=== PATIENT | female | born 1945 ===

== ENCOUNTER 2017-06-22 02:33 | Outpatient (CLI) | payer MEDICARE, BC | END 2017-06-22 23:59 | disposition home or self-care (01) | LOC: DIABETIC 02:33 | PROVIDERS: ATTEND Student in an Organized Health Care Education/Training Program | DX: E11.65 Type 2 diabetes mellitus with hyperglycemia (principal) | CPT/HCPCS: G0108 ==

== ENCOUNTER 2017-08-01 02:53 | Outpatient (CLI) | payer MEDICARE, BC | END 2017-08-01 23:59 | disposition home or self-care (01) | LOC: DIABETIC 02:53 | PROVIDERS: ATTEND Student in an Organized Health Care Education/Training Program | DX: E11.65 Type 2 diabetes mellitus with hyperglycemia (principal) | CPT/HCPCS: G0108 ==